=== PATIENT | female | born 1975 | race Caucasian/White ===

== ENCOUNTER 2020-04-10 13:21 | Emergency (ER) | payer SELFPAY ==
[~2020-04-10] VITALS: Ht 157.5 cm; Wt 91.3 kg
[2020-04-10 14:17] LABS: BASOPHILS # (AUTO) 0.05 x10^3/uL (0-0.1); BASOPHILS % (AUTO) 1 % (0-1); EOSINOPHILS # (AUTO) 0.09 x10^3/uL (0-0.4); EOSINOPHILS % (AUTO) 1 % (1-7); LYMPHOCYTES # (AUTO) 3.11 x10^3/uL (1-3.4); LYMPHOCYTES % (AUTO) 36 % (22-44); MD NO; MEAN CORPUSCULAR HEMOGLOBIN 29.6 pg (27.0-34.8); MEAN CORPUSCULAR HGB CONC 32.9 g/dL (32.4-35.8); MEAN PLATELET VOLUME 7.7 fL (7.4-10.4); MONOCYTES # (AUTO) 1.01 x10^3/uL (0.2-0.8); MONOCYTES % (AUTO) 12 % (2-9); NEUTROPHILS % (AUTO) 50 % (42-75); PLATELET COUNT 381 x10^3/uL (130-400); RED BLOOD COUNT 4.97 x10^6/uL (3.82-5.3); RED CELL DISTRIBUTION WIDTH 13.4 % (9.6-15.2)
[2020-04-10 14:21] LABS: ALBUMIN 3.9 g/dL (3.4-5.0); ANION GAP 9 mmol/L (5-15); CALCIUM 9.4 mg/dL (8.5-10.1); CHLORIDE 109 mmol/L (98-107); CREATININE 0.91 mg/dL (0.55-1.02)
[2020-04-10 14:24] LABS: TROPONIN I < 0.015 ng/mL (0.000-0.045)
[2020-04-10] MEDS ORDERED: OMNIPAQUE 350 MG/ML, 100ML BOTTLE ONE (16:59)
[2020-04-10] MEDS ORDERED: SODIUM CHLORIDE FLUSH 10ML SYR IVF ONE (17:00)
--- NOTE | 2020-04-10 18:17 | NUR ---
PT D/C WITH D/C SUMMARY AND SCRIPTS. ALL QUESTIONS ANSWERED. PT AMBULATES TO REGISTRATION DESK WITH STEADY GAIT FOR D/C HOME. PT DENIES ANY OTHER NEEDS PERTAINING TO THIS VISIT. VSS AND UPDATED PRIOR TO D/C AND IV D/C WITH TIP INTACT.
[2020-04-10 18:19] VITALS: BP 112/67
== END 2020-04-10 18:21 ==
LOC: ED 16:29
DX: R06.00 Dyspnea, unspecified (principal); Z20.828 Contact with and (suspected) exposure to other viral communicable diseases; I44.4 Left anterior fascicular block; R00.0 Tachycardia, unspecified; R07.9 Chest pain, unspecified; Z86.718 Personal history of other venous thrombosis and embolism; Z88.0 Allergy status to penicillin; Z85.038 Personal history of other malignant neoplasm of large intestine
CPT/HCPCS: 36415; 71045; 71275; 80048; 82040; 83880; 84484; 85025; 87635; 93005; 99285; Q9967

== ENCOUNTER → 2020-09-24 | Outpatient (CLI) | payer OTHER | END | disposition home or self-care (01) | LOC: RAD 10:00 | PROVIDERS: ATTEND Physician Assistant | DX: R68.81 Early satiety (principal); R13.10 Dysphagia, unspecified; R11.0 Nausea; R74.8 Abnormal levels of other serum enzymes | CPT/HCPCS: 78264; A9541 ==

== ENCOUNTER → 2020-10-01 | Outpatient (CLI) | payer OTHER | END | disposition home or self-care (01) | LOC: RAD 14:26 | PROVIDERS: ATTEND Physician Assistant | DX: K44.9 Diaphragmatic hernia without obstruction or gangrene (principal); K21.9 Gastro-esophageal reflux disease without esophagitis; R11.0 Nausea; R74.8 Abnormal levels of other serum enzymes; K22.4 Dyskinesia of esophagus | CPT/HCPCS: 74220 ==

== ENCOUNTER 2020-10-14 13:09 | Emergency (ER) | payer OTHER ==
[~2020-10-14] VITALS: Ht 157.5 cm; Wt 96.3 kg
--- NOTE | 2020-10-14 13:24 | NUR ---
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
[2020-10-14] MEDS ORDERED: MAALOX/HYOSCYAMINE/LIDOCAINE 45 ML BTL PO ONE (14:00)
[2020-10-14] MEDS ORDERED: PANTOPRAZOLE 40 MG IV ONE (14:19)
[2020-10-14] MEDS ORDERED: MAALOX/HYOSCYAMINE/LIDOCAINE 45 ML BTL ONE (14:19)
[2020-10-14] MEDS ORDERED: SODIUM CHLORIDE 0.9% 1,000ML IVBOLUS ONE (14:30)
[2020-10-14] MEDS ORDERED: SODIUM CHLORIDE FLUSH 10ML SYR IVF ONE (14:30)
[2020-10-14] MEDS ORDERED: PANTOPRAZOLE 40 MG IV IV ONE (14:30)
[2020-10-14 14:35] LABS: ALANINE AMINOTRANSFERASE 25 U/L (12-78); ALBUMIN 3.7 g/dL (3.4-5.0); ANION GAP 5 mmol/L (5-15); BASOPHILS % (AUTO) 1 % (0-1); CALCIUM 9.1 mg/dL (8.5-10.1); CHLORIDE 110 mmol/L (98-107); EOSINOPHILS % (AUTO) 1 % (1-7); LYMPHOCYTES % (AUTO) 40 % (22-44); MEAN CORPUSCULAR HEMOGLOBIN 29.5 pg (27.0-34.8); MEAN CORPUSCULAR HGB CONC 33.9 g/dL (32.4-35.8); MEAN PLATELET VOLUME 7.1 fL (7.4-10.4); MONOCYTES % (AUTO) 11 % (2-9); NEUTROPHILS % (AUTO) 47 % (42-75); PLATELET COUNT 356 x10^3/uL (130-400); RED BLOOD COUNT 4.75 x10^6/uL (3.82-5.3); RED CELL DISTRIBUTION WIDTH 12.7 % (9.6-15.2)
[2020-10-14 14:36] LABS: MD NO
[2020-10-14 14:39] LABS: ALKALINE PHOSPHATASE 132 U/L (45-117); BILIRUBIN,TOTAL 0.5 mg/dL (0.2-1.0); CREATININE 0.84 mg/dL (0.55-1.02); TOTAL PROTEIN 7.9 g/dL (6.4-8.2)
--- NOTE | 2020-10-14 14:56 | NUR ---
22 gauge IV started right AC. Fluids infusing, pantoprazole IV given. Pt drank 90% of GI cocktail, unable to tolerate more.
[2020-10-14 15:59] VITALS: BP 103/66
== END 2020-10-14 16:15 | disposition home or self-care (01) ==
LOC: ED 16:00
DX: K21.9 Gastro-esophageal reflux disease without esophagitis (principal); R94.31 Abnormal electrocardiogram [ECG] [EKG]; Z87.891 Personal history of nicotine dependence; Z86.718 Personal history of other venous thrombosis and embolism; Z85.038 Personal history of other malignant neoplasm of large intestine; Z90.710 Acquired absence of both cervix and uterus
CPT/HCPCS: 36415; 80053; 83690; 84702; 85025; 93005; 96361; 96374; 99284; C9113; J7030

== ENCOUNTER 2020-12-05 13:57 | Emergency (ER) | payer OTHER ==
[~2020-12-05] VITALS: Ht 157.5 cm; Wt 94.4 kg
--- NOTE | 2020-12-05 14:16 | NUR ---
PATIENT WALKED BACK FROM TRIAGE WITH CHIEF C/O COVID +, PATIENT TESTED POSITIVE 11/27/2020 AND WAS REFERRED FROM PCP FOR ANTIBODY INFUSION. NADN, O2 SATURATION 99% RA, OTHER VSS, CALL LIGHT WITHIN REACH.
--- NOTE | 2020-12-05 14:51 | NUR ---
20 GAUGE IV STARTED RIGHT AC, BLOOD COLLECTED AND LABELLED, NO ORDERS YET.
[2020-12-05] MEDS ORDERED: BAMLANIVIMAB 700 MG, ETESEVIMAB 1,400 MG in SODIUM CHLORIDE 0.9% 250 ML IV ONE (15:30)
[2020-12-05] MEDS ORDERED: FILTER 0.22 MICRON IV ONE (15:30)
[2020-12-05 15:37] LABS: BASOPHILS % (AUTO) 1 % (0-1); EOSINOPHILS % (AUTO) 0 % (1-7); LYMPHOCYTES % (AUTO) 38 % (22-44); MEAN CORPUSCULAR HGB CONC 33.2 g/dL (32.4-35.8); MEAN PLATELET VOLUME 7.9 fL (7.4-10.4); MONOCYTES % (AUTO) 13 % (2-9); NEUTROPHILS % (AUTO) 49 % (42-75); PLATELET COUNT 260 x10^3/uL (130-400); RED BLOOD COUNT 4.84 x10^6/uL (3.82-5.3)
[2020-12-05 15:38] LABS: MD NO
[2020-12-05 15:44] LABS: ALANINE AMINOTRANSFERASE 42 U/L (12-78); ALBUMIN 3.5 g/dL (3.4-5.0); ANION GAP 7 mmol/L (5-15); CALCIUM 8.9 mg/dL (8.5-10.1); CHLORIDE 110 mmol/L (98-107); CREATININE 0.87 mg/dL (0.55-1.02)
[2020-12-05 15:47] LABS: ALKALINE PHOSPHATASE 140 U/L (45-117); BILIRUBIN,TOTAL 0.2 mg/dL (0.2-1.0); TOTAL PROTEIN 7.6 g/dL (6.4-8.2)
--- NOTE | 2020-12-05 15:50 | NUR ---
[facility] INFORMATION SHEET GIVEN TO PATIENT, ALL QUESTIONS ANSWERED, PATIENT AGGREEABLE TO CONTINUE WITH INFUSION. B[facility] INFUSION STARTED, NADN, VSS, CALL LIGHT WITHIN REACH.
--- NOTE | 2020-12-05 17:11 | NUR ---
PATIENT'S IV BEEPING, TUBING CHANGED, [facility] STILL INFUSING, ANOTHER HOUR AND 13 MINUTES LEFT. PATIENT TOLERATING INFUSION WELL.
--- NOTE | 2020-12-05 18:22 | NUR ---
30 MINUTES LEFT ON INFUSION, PATIENT TOLERATING WELL, VSS, WARM BLANKET PROVIDED, CALL LIGHT WITHIN REACH.
--- NOTE | 2020-12-05 18:45 | NUR ---
REPORT FROM BEKAH DUEÑAS
[2020-12-05 18:55] VITALS: BP 120/78
--- NOTE | 2020-12-05 18:56 | NUR ---
PT SITING UPRIGHT ON MAU LEDESMA VSS. PT UP TO BEDSIDE COMMODE. BAMBAM ADMIN COMPLETE. PT DENIES ANY ADDITIONAL NEEDS AT THIS TIME. CALL LIGHT AND BELONGINGS WITHIN REACH.
[2020-12-05] MEDS ORDERED: ACETAMINOPHEN 500 MG TABLET ONE (20:15)
--- NOTE | 2020-12-05 20:27 | NUR ---
Patient given discharge instructions and they have confirmed that they understand the instructions. Patient ambulatory with steady gait.
[2020-12-05] MEDS ORDERED: ACETAMINOPHEN 500 MG TABLET PO ONE (20:30)
== END 2020-12-05 20:29 | disposition home or self-care (01) ==
LOC: ED 14:37
DX: U07.1 COVID-19 (principal); J12.82 Pneumonia due to coronavirus disease 2019; R50.9 Fever, unspecified; R06.00 Dyspnea, unspecified; R05 Cough; R09.81 Nasal congestion; K21.9 Gastro-esophageal reflux disease without esophagitis; Z88.0 Allergy status to penicillin; Z85.038 Personal history of other malignant neoplasm of large intestine
CPT/HCPCS: 36415; 71045; 80053; 85025; 99284; J7050; M0239; Q0239

== ENCOUNTER 2021-01-10 07:47 | Outpatient (CLI) | payer OTHER ==
[2021-01-10 08:14] LABS: FIBRINOGEN 395 mg/dL (200-340); PARTIAL THROMBOPLASTIN TIME 28 Seconds (25-31)
[2021-01-10 08:44] LABS: D-DIMER < 0.19 ug/mlFEU (0.00-0.52)
== END 2021-01-10 23:59 | disposition home or self-care (01) ==
LOC: LAB 07:47
PROVIDERS: ATTEND Family Medicine
DX: D68.51 Activated protein C resistance (principal); Z20.822 Contact with and (suspected) exposure to COVID-19; Z86.711 Personal history of pulmonary embolism
CPT/HCPCS: 36415; 85379; 85384; 85730

== ENCOUNTER → 2021-01-16 | Outpatient (CLI) | payer OTHER ==
[2021-01-16 07:57] LABS: MICROSCOPIC AUTO
[2021-01-16 07:58] LABS: FIBRINOGEN 417 mg/dL (200-340); PARTIAL THROMBOPLASTIN TIME 28 Seconds (25-31)
[2021-01-16 08:02] LABS: D-DIMER < 0.19 ug/mlFEU (0.00-0.52)
== END | disposition home or self-care (01) ==
LOC: LAB 07:22
PROVIDERS: ATTEND Family Medicine
DX: Z20.822 Contact with and (suspected) exposure to COVID-19 (principal); R31.9 Hematuria, unspecified; Z87.442 Personal history of urinary calculi; D68.51 Activated protein C resistance; R10.9 Unspecified abdominal pain; Z86.711 Personal history of pulmonary embolism
CPT/HCPCS: 36415; 81001; 85379; 85384; 85730; 87077; 87086; 87186

== ENCOUNTER → 2021-02-10 | Outpatient (CLI) | payer OTHER ==
[~2021-02-10] MED LIST: APIX5TAB PO; KETORALAC PO; LEVO25TA2 PO; METF500T17 PO; OMEP-110 PO; ONDA4TAB7 PO; WELBUTRIN PO; [UNRECOGNIZED DRUG - OTHER] IM; [UNRECOGNIZED DRUG - OTHER] PO; [UNRECOGNIZED DRUG - OTHER] TD
[2021-02-10 18:29] LABS: ALANINE AMINOTRANSFERASE 30 U/L (12-78); ALBUMIN 3.8 g/dL (3.4-5.0); ANION GAP 7 mmol/L (5-15); CALCIUM 9.2 mg/dL (8.5-10.1); CHLORIDE 108 mmol/L (98-107); CREATININE 0.85 mg/dL (0.55-1.02); D-DIMER < 0.19 ug/mlFEU (0.00-0.52); FIBRINOGEN 316 mg/dL (200-340); PARTIAL THROMBOPLASTIN TIME 28 Seconds (25-31)
[2021-02-10 18:33] LABS: ALKALINE PHOSPHATASE 105 U/L (45-117); BILIRUBIN,TOTAL 0.3 mg/dL (0.2-1.0); TOTAL PROTEIN 7.9 g/dL (6.4-8.2)
== END | disposition home or self-care (01) ==
LOC: LAB 17:46
PROVIDERS: ATTEND Specialist
DX: Z45.2 Encounter for adjustment and management of vascular access device (principal); Z51.11 Encounter for antineoplastic chemotherapy; C18.5 Malignant neoplasm of splenic flexure; I26.99 Other pulmonary embolism without acute cor pulmonale; Z86.711 Personal history of pulmonary embolism; Z79.01 Long term (current) use of anticoagulants
CPT/HCPCS: 36415; 80053; 82378; 85379; 85384; 85730

== ENCOUNTER 2021-02-12 11:46 | Day surgery (SDC) | payer OTHER ==
[~2021-02-12] VITALS: Ht 157.5 cm; Wt 96.6 kg
[2021-02-12 12:27] VITALS: BP 105/65
[2021-02-12] MEDS ORDERED: LACTATED RINGERS 1,000 ML IV SCH (12:30)
[2021-02-12] MEDS ORDERED: CHLORHEXIDINE 15 ML UDC PO ONE (12:30)
[2021-02-12] MEDS ORDERED: METF500T17 PO (12:48)
[2021-02-12] MEDS ORDERED: APIX5TAB PO (12:48)
[2021-02-12] MEDS ORDERED: [UNRECOGNIZED DRUG - OTHER] IM (12:48)
[2021-02-12] MEDS ORDERED: WELBUTRIN PO (12:48)
[2021-02-12] MEDS ORDERED: [UNRECOGNIZED DRUG - OTHER] PO (12:48)
[2021-02-12] MEDS ORDERED: LEVO25TA2 PO (12:48)
[2021-02-12] MEDS ORDERED: [UNRECOGNIZED DRUG - OTHER] TD (12:48)
[2021-02-12] MEDS ORDERED: ONDA4TAB7 PO (12:48)
[2021-02-12] MEDS ORDERED: OMEP-110 PO (12:48)
[2021-02-12 12:49] LABS: MICROSCOPIC INDICATED
[2021-02-12] MEDS ORDERED: KETORALAC PO (12:57)
[2021-02-12] MEDS ORDERED: FENTANYL PF 250 MCG/5ML ONE (13:12)
[2021-02-12] MEDS ORDERED: MIDAZOLAM 1 MG/ML, 2ML ONE (13:12)
[2021-02-12 13:17] LABS: INTERNATIONAL NORMALIZED RATIO 0.96 (0.93-1.1); PROTHROMBIN TIME 10.3 Seconds (9.6-11.5)
[2021-02-12] MEDS ORDERED: SUCCINYLCHOLINE 20 MG/ML, 10ML ONE (13:44)
[2021-02-12] MEDS ORDERED: ROCURONIUM 10 MG/ML,10ML ONE (13:44)
[2021-02-12] MEDS ORDERED: PROPOFOL 10 MG/ML, 20ML ONE (13:44)
[2021-02-12] MEDS ORDERED: KETOROLAC 30 MG/1 ML ONE (13:44)
[2021-02-12] MEDS ORDERED: CEFAZOLIN 1,000 MG ONE ×2 (13:55→14:37)
[2021-02-12] MEDS ORDERED: DEXAMETHASONE 4 MG/ML, 1ML ONE ×2 (13:55→14:37)
[2021-02-12] MEDS ORDERED: OMNIPAQUE 350 MG/ML, 50 ML BOTTLE ONE (14:16)
[2021-02-12] MEDS ORDERED: ONDANSETRON 2MG/ML, 2ML ONE (14:37)
[2021-02-12] MEDS ORDERED: LABETALOL 5MG/ML, 20ML IV PRN (15:00)
[2021-02-12] MEDS ORDERED: hydrALAzine 20 MG/ML, 1ML IV PRN (15:00)
[2021-02-12] MEDS ORDERED: FENTANYL PF 100 MCG/2ML IV PRN (15:00)
[2021-02-12] MEDS ORDERED: DIAZEPAM 5 MG/ML, 2ML IVPush PRN (15:00)
[2021-02-12] MEDS ORDERED: ALBUTEROL SULFATE 2.5 MG/3 ML NPPB PRN (15:00)
[2021-02-12] MEDS ORDERED: PROMETHAZINE 12.5 MG SUPP PR PRN (15:00)
[2021-02-12] MEDS ORDERED: ONDANSETRON 2MG/ML, 2ML IVPush PRN (15:00)
[2021-02-12] MEDS ORDERED: OXYcodone 5 MG/5 ML ORAL.SOL UDC PO PRN (15:00)
[2021-02-12] MEDS ORDERED: PROMETHAZINE 25 MG/ML, 1ML IVPush PRN (15:00)
[2021-02-12] MEDS ORDERED: EPHEDRINE 50 MG/ML, 1ML IVPush PRN (15:00)
[2021-02-12] MEDS ORDERED: DIPHENHYDRAMINE 50 MG/ML, 1ML IVPush PRN ×2 (15:00)
[2021-02-12] MEDS ORDERED: MEPERIDINE/PF 25MG/0.5ML IVPush PRN (15:00)
[2021-02-12] MEDS ORDERED: MIDAZOLAM 1 MG/ML, 2ML IV PRN (15:00)
[2021-02-12] MEDS ORDERED: PROMETHAZINE 25 MG/ML, 1ML ONE (15:07)
[2021-02-12] MEDS ORDERED: HYDROmorphone 1 MG/ML, 1ML INJ ONE (15:16)
[2021-02-12] MEDS: HYDROmorphone 1 MG/ML, 1ML INJ IVPush PRN ×2 (15:20→15:38)
== END 2021-02-12 16:55 | disposition home or self-care (01) ==
LOC: OUT 11:46
PROVIDERS: ATTEND Urology
DX: N20.2 Calculus of kidney with calculus of ureter (principal); E03.9 Hypothyroidism, unspecified; D68.51 Activated protein C resistance; Z20.822 Contact with and (suspected) exposure to COVID-19; Z79.01 Long term (current) use of anticoagulants; Z79.84 Long term (current) use of oral hypoglycemic drugs; Z79.890 Hormone replacement therapy; Z87.891 Personal history of nicotine dependence; Z79.899 Other long term (current) drug therapy; Z85.038 Personal history of other malignant neoplasm of large intestine; Z87.442 Personal history of urinary calculi; Z88.0 Allergy status to penicillin; Z90.49 Acquired absence of other specified parts of digestive tract; Z98.84 Bariatric surgery status
CPT/HCPCS: 52353; 74420; 81001; 82360; 82962; 85610; 87086; 87635; 88300; C1726; C1758; C1760; C1769; J0330; J0690; J1100; J1170; J1885; J2250; J2405; J2550; J2704; J3010; J7120; Q9967